=== PATIENT | female | born 1975 | race Caucasian/White ===

== ENCOUNTER 2020-11-29 04:44 | Day surgery (SDC) | payer OTHER ==
[2020-11-28 15:18] VITALS: BMI 29.4
[2020-11-29] MEDS ORDERED: PROPOFOL 20 ML ONE ×3 (13:23)
[2020-11-29] MEDS ORDERED: MIDAZOLAM HCL 2 MG/2 ML SINGLE DOSE VIAL ONE (13:24)
[2020-11-29] MEDS ORDERED: ONDANSETRON 4 MG/2 ML VIAL IVPUSH PRN (13:57)
[2020-11-29] MEDS ORDERED: IBUPROFEN 600 MG TABLET (FP) PO PRN (13:57)
[2020-11-29] MEDS ORDERED: IBUPROFEN 800 MG/8 ML IJ IVPB PRN (13:57)
[2020-11-29] MEDS ORDERED: oxyCODONE HCL 5 MG TABLET PO PRN ×2 (13:57→14:13)
[2020-11-29] MEDS ORDERED: ELECTROLYTE-148 SOLN 1,000 ML IV SCH (14:00)
[2020-11-29] MEDS ORDERED: PROMETHAZINE HCL 25 MG/1 ML VIAL IVPB PRN (14:13)
[2020-11-29 16:36] VITALS: BP 133/59; PULSE 80; TEMP 98.1
== END 2020-11-29 16:30 | disposition home or self-care (01) ==
LOC: JASU-SURG 04:44
PROVIDERS: ATTEND Obstetrics & Gynecology
PROC: 0UDB7ZX Extraction of Endometrium, Via Natural or Artificial Opening, Diagnostic (ICD-10-PCS; 2020-11-29)
PROC: 0UJD8ZZ Inspection of Uterus and Cervix, Via Natural or Artificial Opening Endoscopic (ICD-10-PCS; 2020-11-29)
PROC: 0UB98ZZ Excision of Uterus, Via Natural or Artificial Opening Endoscopic (ICD-10-PCS; principal; 2020-11-29 13:30)
PROC: 0UB97ZX Excision of Uterus, Via Natural or Artificial Opening, Diagnostic (ICD-10-PCS; 2020-11-29 13:30)
DX: N92.1 Excessive and frequent menstruation with irregular cycle (principal); D25.9 Leiomyoma of uterus, unspecified; N84.0 Polyp of corpus uteri; D64.9 Anemia, unspecified
CPT/HCPCS: 81025; 88305-TC; 94760

== ENCOUNTER 2021-02-15 10:29 | Emergency (ER) | payer OTHER ==
[2021-02-15 10:36] VITALS: BP 149/74; PULSE 86; TEMP 98.1; BMI 29.1
[2021-02-15] MEDS ORDERED: KETOROLAC TROMETHAMINE 30 MG/1 ML VIAL IM ONE (12:03)
[2021-02-15] MEDS ORDERED: SODIUM CHLORIDE 1,000 ML IV STA (12:05)
[2021-02-15] MEDS ORDERED: KETOROLAC TROMETHAMINE 30 MG/1 ML VIAL IVPUSH ONE (12:10)
[2021-02-15] MEDS ORDERED: KETOROLAC TROMETHAMINE 30 MG/1 ML VIAL ONE (12:13)
[2021-02-15 12:34] LABS: HEMATOCRIT 37.1 % (32.4-45.2); HEMOGLOBIN 12.4 GM/dL (10.7-15.3); MCHC 33.5 g/dl (32.0-36.0); MEAN CELL VOLUME 80.6 fl (80-96); MEAN PLT VOLUME 6.8 fl (7.5-11.1); PLATELET COUNT 566 10^3/uL (134-434); RBC 4.61 M/mm3 (3.60-5.2); RDW 15.6 % (11.6-15.6); WHITE BLOOD COUNT 11.2 K/mm3 (4.0-10.0)
[2021-02-15 12:36] LABS: PH,URINE 6.5 (5.0-8.0); URINE APPEARANCE CLEAR; URINE BILIRUBIN NEGATIVE (NEGATIVE); URINE COLOR YELLOW; URINE GLUCOSE (UA) NEGATIVE (NEGATIVE); URINE KETONE NEGATIVE (NEGATIVE); URINE LEUK ESTERASE NEGATIVE (NEGATIVE); URINE NITRITE NEGATIVE (NEGATIVE); URINE PROTEIN NEGATIVE (NEGATIVE); URINE UROBILINOGEN 0.2 mg/dL (0.2-1.0)
[2021-02-15 12:46] LABS: BLOOD UREA NITROGEN 11.2 mg/dL (7-18); CALCIUM 9.6 mg/dL (8.5-10.1)
[2021-02-15 12:48] LABS: ALBUMIN 3.7 g/dl (3.4-5.0)
[2021-02-15 12:51] LABS: CREATININE 0.7 mg/dL (0.55-1.3)
[2021-02-15 12:52] LABS: BILIRUBIN,TOTAL 0.4 mg/dL (0.2-1); TOT PROT 8.2 g/dl (6.4-8.2)
[2021-02-15] MEDS ORDERED: cefTRIAXone SODIUM 1 GM VIAL ONE (16:42)
== END 2021-02-15 16:58 | disposition home or self-care (01) ==
LOC: JER 10:29
PROC: 3E0233Z Introduction of Anti-inflammatory into Muscle, Percutaneous Approach (ICD-10-PCS; principal; 2021-02-15)
PROC: 3E0337Z Introduction of Electrolytic and Water Balance Substance into Peripheral Vein, Percutaneous Approach (ICD-10-PCS; 2021-02-15)
PROC: 3E0333Z Introduction of Anti-inflammatory into Peripheral Vein, Percutaneous Approach (ICD-10-PCS; 2021-02-15)
PROC: 3E033GC Introduction of Other Therapeutic Substance into Peripheral Vein, Percutaneous Approach (ICD-10-PCS; 2021-02-15)
PROC: 3E02329 Introduction of Other Anti-infective into Muscle, Percutaneous Approach (ICD-10-PCS; 2021-02-15)
DX: N20.0 Calculus of kidney (principal); R10.2 Pelvic and perineal pain
CPT/HCPCS: 36415; 74177-TC; 76830-TC; 80053; 81003; 85027; 87070; 87086; 87205; 87491; 87591; 87661; 96361; 96372; 96374; 96375; 99285-25; Q9967

== ENCOUNTER 2021-06-25 04:21 | Inpatient (IN) | payer OTHER ==
[2021-06-21 15:05] VITALS: BMI 31.2
[2021-06-25] MEDS ORDERED: BUPIVACAINE LIPOSOME/PF (EXPAREL) 266 MG/20 ML VIAL ONE (08:03)
[2021-06-25] MEDS ORDERED: BUPIVACAINE HCL/PF 0.5% (5MG/ML) 10 ML VIAL ONE (08:03)
[2021-06-25] MEDS ORDERED: MIDAZOLAM HCL 2 MG/2 ML SINGLE DOSE VIAL ONE ×2 (08:07)
[2021-06-25] MEDS ORDERED: ceFAZolin SODIUM 1 GM VIAL IVPB ONE (10:00)
[2021-06-25] MEDS ORDERED: KETOROLAC TROMETHAMINE 30 MG/1 ML VIAL ONE (10:25)
[2021-06-25] MEDS ORDERED: SUCCINYLCHOLINE CHLORIDE 200 MG/10 ML SYRINGE ONE (10:25)
[2021-06-25] MEDS ORDERED: ONDANSETRON 4 MG/2 ML VIAL ONE (10:25)
[2021-06-25] MEDS ORDERED: LIDOCAINE HCL/PF 2% SDV 5ML VIAL ONE (10:25)
[2021-06-25] MEDS ORDERED: ROCURONIUM BROMIDE 100 MG/10 ML VIAL ONE (10:25)
[2021-06-25] MEDS ORDERED: PROPOFOL 20 ML ONE (10:26)
[2021-06-25] MEDS ORDERED: ONDANSETRON 4 MG/2 ML VIAL IVPUSH PRN (11:33)
[2021-06-25] MEDS ORDERED: IBUPROFEN 800 MG/8 ML IJ IVPB PRN (11:33)
[2021-06-25] MEDS ORDERED: oxyCODONE HCL 5 MG TABLET PO PRN (11:33)
[2021-06-25] MEDS ORDERED: HYDROmorphone HCl 2 MG/ML VIAL ONE (12:38)
[2021-06-25] MEDS ORDERED: HYDROmorphone HCl 2 MG/ML VIAL IVPUSH ONE ×4 (12:40→13:00)
[2021-06-25] MEDS ORDERED: HYDROmorphone HCL CARPU-JECT 2 MG/1 ML DISP.SYRIN IVPUSH PRN (12:48)
[2021-06-25] MEDS: oxyCODONE HCL 5 MG TABLET PO PRN ×2 (15:30→20:47)
[2021-06-25] MEDS ORDERED: ceFAZolin SODIUM 1 GM VIAL ONE (17:52)
[2021-06-25] MEDS ORDERED: DEXTROSE 5%-WATER - 50 ML IVPB ONE (17:52)
[2021-06-25] MEDS: ELECTROLYTE-148 SOLN 1,000 ML IV SCH (18:03)
[2021-06-25] MEDS: CEFAZOLIN 1 GM in DEXTROSE 5%-WATER - 50 ML IVPB SCH (18:04)
[2021-06-25] MEDS: IBUPROFEN 600 MG TABLET (FP) PO PRN (18:56)
[2021-06-26] MEDS ORDERED: ceFAZolin SODIUM 1 GM VIAL ONE ×2 (02:59→10:02)
[2021-06-26] MEDS ORDERED: DEXTROSE 5%-WATER - 50 ML IVPB ONE ×2 (03:00→10:02)
[2021-06-26] MEDS: CEFAZOLIN 1 GM in DEXTROSE 5%-WATER - 50 ML IVPB SCH ×2 (03:02→10:12)
[2021-06-26] MEDS ORDERED: SIMETHICONE 80 MG TAB.CHEW (FP) PO PRN (07:44)
[2021-06-26] MEDS ORDERED: BISACODYL 10 MG SUPP.RECT PR PRN (07:45)
[2021-06-26 09:51] LABS: HEMATOCRIT 30.8 % (32.4-45.2); HEMOGLOBIN 9.6 GM/dL (10.7-15.3); MCH 22.9 pg (25.7-33.7); MCHC 31.1 g/dl (32.0-36.0); MEAN CELL VOLUME 73.4 fl (80-96); MEAN PLT VOLUME 7.1 fl (7.5-11.1); PLATELET COUNT 495 10^3/uL (134-434); RBC 4.19 M/mm3 (3.60-5.2); RDW 19.6 % (11.6-15.6); WHITE BLOOD COUNT 13.5 K/mm3 (4.0-10.0)
[2021-06-26] MEDS ORDERED: DOCUSATE SODIUM 100 MG CAPSULE (FP) PO SCH (10:00)
[2021-06-26] MEDS ORDERED: ENOXAPARIN NA (PORCINE) 40 MG/0.4 ML DISP.SYRIN SQ SCH (10:00)
[2021-06-26 10:11] LABS: BLOOD UREA NITROGEN 4.7 mg/dL (7-18); CALCIUM 8.8 mg/dL (8.5-10.1)
[2021-06-26 10:14] LABS: CREATININE 0.6 mg/dL (0.55-1.3)
[2021-06-26] MEDS: IBUPROFEN 600 MG TABLET (FP) PO PRN ×2 (11:03)
[2021-06-26 14:35] VITALS: BP 150/70; PULSE 83; TEMP 99
[2021-06-26] MEDS: ELECTROLYTE-148 SOLN 1,000 ML IV SCH (14:42)
== END 2021-06-26 18:53 | disposition home or self-care (01) | DRG 513 ==
LOC: J2C 04:21 → J6S 14:54
PROVIDERS: ADMIT Obstetrics & Gynecology; ATTEND Obstetrics & Gynecology
PROC: 0UT70ZZ Resection of Bilateral Fallopian Tubes, Open Approach (ICD-10-PCS; 2021-06-25)
PROC: 0UT90ZL Resection of Uterus, Supracervical, Open Approach (ICD-10-PCS; principal; 2021-06-25 09:00)
DX: N80.0 Endometriosis of uterus (principal); D25.9 Leiomyoma of uterus, unspecified; N92.1 Excessive and frequent menstruation with irregular cycle
CPT/HCPCS: 36415; 80048; 81025; 84702; 85027; 86850; 86900; 86901; 88302-TC; 88305-TC; 94010; 94760